=== PATIENT | female | born 1960 | race Caucasian/White ===

== ENCOUNTER 2018-11-14 10:49 | Outpatient (CLI) | payer OTHER ==
--- NOTE | 2018-11-14 11:30 | Diagnostic Imaging Report ---
TRACEY SALCEDO [facility] [address] [facility] [address] [id number] Report Submission Date: Nov 14, 2018 11:26:09 AM MOLDER Patient Study Name: SHAYLEE IVY Date: Nov 14, 2018 10:45:37 AM MOLDER Modality Type: DX Gender: F Description: CHEST : 62 Institution: [facility] Physician: TRACEY SALCEDO PA chest and right ribs History: Fell on ice PA chest dated November 14, 2018 demonstrates a normal cardiomediastinal silhouette. Pulmonary vascularity is normal. Lungs are clear. There is no pneumothorax. No right rib fracture is noted. Impression: No acute cardiopulmonary process. No right rib fracture is noted. Electronically signed on Nov 14, 2018 11:26:09 AM MOLDER by: Martha GOETZ
--- NOTE | 2018-11-14 11:30 | Diagnostic Imaging Report ---
TRACEY SALCEDO [facility] [address] [facility] [address] [address] Report Submission Date: Nov 14, 2018 11:19:00 AM BUILDING SUPERINTENDENT Patient Study Name: SHAYLEE IVY Date: Nov 14, 2018 10:53:19 AM BUILDING SUPERINTENDENT Modality Type: DX Gender: F Description: LOWER EXTREMITY : 62 Institution: [facility] Physician: TRACEY SALCEDO Examination: Plain film right ankle History: PAIN POST FALL ON ICE TODAY. (Hx) Findings: 3 views of the right ankle demonstrates normal cortical margins. No fracture or dislocation. Talar dome is intact. Inferior calcaneal spur. No soft tissue swelling. No joint effusion. Impression: No acute osseous process. Electronically signed on Nov 14, 2018 11:19:00 AM BUILDING SUPERINTENDENT by: Shreyas GOETZ
== END 2018-11-14 10:52 ==
LOC: RAD 10:49
PROVIDERS: ATTEND Family Medicine
DX: S93.401A Sprain of unspecified ligament of right ankle, initial encounter (principal); R07.81 Pleurodynia; X58.XXXA Exposure to other specified factors, initial encounter
CPT/HCPCS: 71101; 73610